=== PATIENT | female | born 1995 | race Hispanic/Latino ===

== ENCOUNTER 2016-12-19 19:30 | Emergency (ER) | payer OTHER ==
[~2016-12-19] VITALS: Ht 157.5 cm; Wt 68.2 kg
[2016-12-19 19:48] VITALS: BP 112/76; PULSE 68; RESP 15; O2SAT 98
--- NOTE | 2016-12-19 20:04 | ED.REPORT ---
HPI- Female Date of Service Dec 19, 2016 ED Provider: Juanito Martinez MD The patient is a 21 year old female who presents to the ED due to dysuria and urinary frequency onset 4 days ago and increasing in severity. Associated symptoms include urinary urgency and increased frequency. Pt states that it feels similar to previous UTI's she has had in the past. Denies abnormal vaginal discharge and bleeding. Pt is on control Nursing Notes Stated Complaint: POSSIBLE BLADDER INFECTION Chief Complaint: Female Abdominal Pain Nursing Notes Reviewed: Yes Allergies: Coded Allergies: No Known Allergies (Verified Allergy, Unknown, 10/24/14) Uncoded Allergies: ANTIBIOTIC (Adverse Reaction, Unknown, 08/10/15) UNKNOWN Scheduled Cephalexin (Keflex) 500 Mg Capsule 500 MG PO QID General Time Seen by MD: 20:03 Chief Complaint Dysuria Hx Obtained From: Patient Arrived By: Walk-in Sudden in Onset?: Yes Onset Occurred: 4 days ago Symptom Duration: Since onset Severity: Current: No pain currently Recent Healthcare: No recent doctor visit, No recent hospitalization Similar Sx Previous: Yes Past Medical History Past Medical History Notes: Denies pmsh. Past Medical History hx of UTI Past Surgical History Denies Review of Systems Female: Reports: Dysuria, Urinary frequency, Urinary urgency, Denies: Vaginal bleeding - abnl, Vaginal discharge Complete sys rev & neg: except as marked. Physical Exam Initial Vital Signs Vital Signs (First) Date Time Temp Pulse Resp B/P Pulse Ox O2 Delivery O2 Flow Rate FiO2 12/19/16 19:48 36.4 68 15 112/76 98 12/19/16 21:19 Room Air Initial VS: Reviewed Female Genitourinary: Exam deferred General/Constitutional: Awake, Alert, No acute distress, Cooperative Respiratory / Chest: Atraumatic, Breath sounds NL, Breath sounds = bilat, No respiratory distress Cardiovascular: Heart rate NL, Regular rhythm, Heart sounds NL Abdomen: Atraumatic, Soft, Non-tender, No guarding, No rebound, BS normoactive , No distention Back: Atraumatic, Inspection NL, Non-tender Skin: Atraumatic, Warm, Dry Head / Eyes: Atraumatic, Normocephalic, PERRL, EOMI Upper Extremity / MS: Atraumatic, Inspection NL, No deformity Lower Extremity / Pelvis / MS: Atraumatic, Inspection NL, No deformity Neurologic: Oriented X3, Speech NL, No motor deficits Interpretation & Diagnostics Lab Results Interpretation Test 12/19/16 19:51 Urine Color Savery (YELLOW) Urine Appearance Cloudy (CLEAR,HAZY) Urine pH (5.0-8.0) Urine Specific [place] 1.026 (1.003-1.035) Urine Protein mg/dL (NEG,TRACE) Urine Glucose (UA) mg/dL (NEGATIVE) Urine Ketones mg/dL (NEGATIVE) Urine Occult Blood (NEGATIVE) Urine Nitrite (NEGATIVE) Urine Bilirubin (NEGATIVE) Urine Urobilinogen mg/dL (NORMAL) Urine Leukocyte Esterase (NEGATIVE) Urine RBC 11-50/hpf (0-2) Urine WBC >50/hpf (0-5) Urine Epithelial Cells Few/hpf (NONE-MOD) Urine Crystals None seen (NONE SEEN) Urine Bacteria Few/hpf (NONE-FEW) Urine Hyaline Casts None/lpf (NONE) Urine Granular Casts None seen (NONE SEEN) Urine Waxy Casts None seen (NONE SEEN) Urine Red Blood Cell Casts None seen (NONE SEEN) Urine White Blood Cell Casts None seen (NONE SEEN) Urine Mucus None seen (None Seen) Urine Trichomonas None seen (NONE SEEN) Urine Yeast None (NONE SEEN) Urinalysis Comment Color interference Urine Culture Reflexed Indicated Re-Eval/Medical Decision Med Decision/Clinical Course In summary, the patient is a generally healthy 21-year-old female who presents to the emergency department complaining of urinary frequency and dysuria for the last 4 days similar in nature to previous urinary tract infections. Of note she reports allergic reaction to antibiotic prescribed for UTI in the past though does not know which antibiotic this was. Here in the emergency department the patient is afebrile stable vital signs and nontoxic in appearance. Examination as above. Laboratory studies obtained as below: Urine RBC 11-50 Urine WBC >50 Few bacteria in urine UA limited due to color interference UA negative Presentation consistent with urinary tract infection. No evidence of sexually transmitted infection, pelvic inflammatory disease, acute surgical intra- abdominal process or other immediately concerning etiology. I am unable to determine despite my best efforts which antibiotic the patient was prescribed previously for urinary tract infection though she states that she developed some itching and rash. I opted to treat her with Keflex and gave her the first dose here in the emergency department. She developed no signs of allergic reaction. She will be given a five-day course of antibiotics and is advised to follow up with her primary care physician. Prior to discharge follow-up and return precautions were reviewed in detail with the patient who verbalized understanding and agreement with the plan. The patient was discharged in stable condition. Counseled Regarding: Diagnosis, Lab results, Need for follow-up, When/why to return to ED Discharge & Departure Impression: Primary Impression: UTI (urinary tract infection) Urinary tract infection type: site unspecified Hematuria presence: without hematuria Qualified Code: N39.0 - Urinary tract infection, site not specified Additional Impressions: Urinary frequency Dysuria Disposition: Home Discharge Condition All VS Reviewed: Yes Condition: Stable Patient Instructions: Urinary Tract Infection in Women (ED) Additional Instructions: I am sending you home with an antibiotic to take for your Urinary Tract Infection. We do not know which antibiotic caused your possible allergic reaction before. Therefore, if he develops any signs of allergic reaction such as swelling of her lips or face, wheezing, difficulty breathing, rash, itching or other concerning signs or symptoms please call 911 and come back to the emergency room immediately. Follow up with your primary care physician. Return to the Emergency Department if you experience any new or worsening symptoms including increased pain, blood in your urine, abnormal discharge or bleeding. I hope you feel better soon! Referrals: NOPCP (PCP) Andresibe Attestation Portion of this note were transcribed by Maryse Flynn. I, Dr. Martinez, personally performed the history, physical exam, and medical decision-making: I reviewed and confirmed the accuracy for the information in the transcribed note. Signed by: thomas Garrison, 12/19/16 2300 copies to: [facility] Juanito Martinez MD Dec 19, 2016 20:04 Maryse Flynn Dec 19, 2016 21:07
[2016-12-19 20:32] LABS: APPEARANCE,URINE CLOUDY (CLEAR,HAZY); COLOR,URINE ORANGE (YELLOW)
[2016-12-19] MEDS ORDERED: CEPH-512 PO (21:10)
[2016-12-19 21:19] VITALS: BP 109/65; PULSE 72; RESP 16; O2SAT 99
== END 2016-12-19 21:19 | disposition home or self-care (01) ==
LOC: SED 19:30
DX: N39.0 Urinary tract infection, site not specified (principal); Z87.440 Personal history of urinary (tract) infections